=== PATIENT | female | born 1970 | race Caucasian/White ===

== ENCOUNTER 2024-08-14 11:17 | Emergency (ER) | payer OTHER, SELFPAY ==
[2024-08-14 11:20] VITALS: BP 137/70; PULSE 86; RESP 18; TEMP 36.4; O2SAT 100
--- NOTE | 2024-08-14 11:36 | PC.NURSE ---
pt educated that a urine sample will be needed, patient unable to provide one at this time and will utilize call light when she is.
--- NOTE | 2024-08-14 11:41 | PC.NURSE ---
bloodwork sent to lab at this time
--- NOTE | 2024-08-14 11:41 | PC.NURSE ---
pt reports that she has had abdominal pain for the past week, with some diarrhea yesterday. pt denies any nausea or vomiting but states I think I may have cancer, it's been a long time since I've seen a doctor
[2024-08-14 11:44] LABS: Basophils Absolute Auto 0.1 K/mm3 (0.0-0.1); Basophils Percent Auto 0.6 % (0.2-1.2); Eosinophils Absolute Auto 0.2 K/mm3 (0-0.3); Eosinophils Percent Auto 2.1 % (0-4.4); Hematocrit 43.7 % (37.0-47.0); Hemoglobin 14.3 g/dL (12.0-15.0); Immature Granulocyte Absolute 0.03 K/mm3 (0.00-0.031); Immature Granulocyte Percent A 0.4 % (0-0.5); Mean Corpuscular HGB Conc 32.7 g/dl (32-36); Mean Corpuscular Hemoglobin 29.6 pg (26-34); Mean Corpuscular Volume 90.5 fl (80-100); Mean Platelet Volume 10.9 fl (7.4-10.4); Monocytes Absolute Auto 0.7 K/mm3 (0.1-0.6); Monocytes Percent Auto 7.9 % (2.6-8.5); Platelet Count Result 308 k/mm3 (150-375); Red Blood Count 4.83 M/mm3 (4.2-5.4); Red Cell Distribution Width 13.2 % (11.5-14.5); White Blood Count 8.3 K/mm3 (4.5-10.0)
[2024-08-14 11:53] LABS: Alanine Aminotransferase 21 U/L (6-35); Albumin Level 4.3 g/dL (3.5-5.1); Alkaline Phosphatase 97 U/L (38-126); Anion Gap 7 mmol/L (4-12); Aspartate Amino Transferase 20 U/L (14-36); Bilirubin,Total 0.6 mg/dL (0.2-1.3); Blood Urea Nitrogen 13 mg/dL (7-17); Calcium 9.1 mg/dL (8.4-10.2); Carbon Dioxide 28 mmol/L (22-30); Chloride 108 mmol/L (98-107); Estimated CRCL calculation 76 ml/min; Estimated Glomerular Filt Rate > 60; Glucose 116 mg/dL (65-110); Lipase 104 U/L (23-300); Sodium 143 mmol/L (137-145)
--- NOTE | 2024-08-14 11:56 | PC.NURSE ---
patient to bathroom with a urine sample cup at this time
--- NOTE | 2024-08-14 12:03 | PC.NURSE ---
patient not able to give enough urine for urine sample at this time. will try again
--- OUTSIDE RECORDS SUMMARY | 2024-08-14 12:03 | XMS_ITS | Referral Summary ---
Author Organization [facility] Address [address] [place] [address] Care Team Providers Care Saddle Mechanic Name Role Phone Diego Lopez MD Primary Care Provider [phone] Allergies No known active allergies Medications butalbital-acet aminophen-caffe ine (ESGIC) 50-325-40 mg per tablet Take 1 tablet by mouth every 6 (six) hours as needed for headaches for up to 5 days 20 tablet 3 Active cephalexin (KEFLEX) 500 mg capsule Take 1 capsule (500 mg total) by mouth 4 (four) times a day Active baclofen (LIORESAL) 10 mg tablet Take 1 tablet (10 mg total) by mouth 3 (three) times a day as needed for muscle spasms 90 tablet 11 3 Active amitriptyline (ELAVIL) 25 mg tablet Take 1 tablet (25 mg total) by mouth nightly 30 tablet 11 3 Active Active Problems No known active problems Social History Tobacco Use Types Packs/Day Years Used Date Smoking Tobacco: Never Assessed Passive Smoke Exposure: Never Tobacco Cessation:Counseling Given: No Personal Safety Answer Date Recorded Have you ever been in or are you currently in a harmful physical or emotional relationship or is someone making you feel afraid or unsafe? 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 Gender Identity Not on file Sexual Orientation Not on file Last Filed Vital Signs Vital Sign Reading Time Taken Comments Blood Pressure 120/70 12/13/2022 1:12 PM CDT Pulse 61 12/04/2022 8:57 PM CDT Temperature 36.8 C (98.2 F) 12/04/2022 2:37 PM CDT Respiratory Rate 16 12/04/2022 8:57 PM CDT Oxygen Saturation 100% 12/04/2022 8:57 PM CDT Inhaled Oxygen Concentration - - Weight 72.6 kg (160 lb) 12/13/2022 1:12 PM CDT Height 152.4 cm (5') 12/13/2022 1:12 PM CDT Body Mass Index 31.25 12/13/2022 1:12 PM CDT Plan of Treatment Not on file Insurance Care Teams Saddle Mechanic Relationship Specialty Start Date End Date Diego Lopez MD [address] [place] [address] PCP - General Internal Medicine 12/08/22
--- OUTSIDE RECORDS SUMMARY | 2024-08-14 12:03 | XMS_ITS | Clinical Summary ---
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 Gender Identity Not on file Sexual Orientation Not on file Obstetrics History Last Filed Vital Signs Vital Sign Reading [...] 12/13/2022 1:12 PM CDT Plan of Treatment Health Maintenance Due Date Last Done Comments Breast Cancer Screening-Mammogram 1972 Cervical Cancer Screening 1972 Colon Cancer Screening-Colonoscopy 1972 Depression Screening 1972 Hepatitis C Screening 1972 DTaP/Tdap/Td Vaccine (1 - Tdap) 1983 Hepatitis B Screening 1990 Regular Well Visit/Exam 18-64 1990 Zoster Vaccine (1 of 2) 2022 Influenza Vaccine (Season Ended) 2024 02/13/20 08 Pneumococcal vaccine <65 Aged Out No longer eligible based on patient's age to complete this topic [place] [address] [place] [address] Care Teams Mix Chemist Relationship Specialty Start Date End Date Diego Lopez MD [address] [place] [address] PCP - General Internal Medicine 12/08/22
--- OUTSIDE RECORDS SUMMARY | 2024-08-14 12:03 | XMS_ITS | Clinical Summary ---
Author Organization [facility] Address [address] [place] [id number] Care Team Providers Care Gear Milling Machine Set Up Operator Name Role Phone None, Provider MD Primary Care Provider Unavaila ble Allergies No known active allergies Social History Tobacco Use Types Packs/Day Years Used Date Smoking Tobacco: Never Smokeless Tobacco: Never Tobacco Cessation:Counseling Given: Not Answered Alcohol Use Standard Drinks/Week Comments Never 0 (1 standard drink = 0.6 oz pur e alcohol) Comments No Sex and Gender Information Value Date Recorded Sex Assigned at Not on file Legal Sex Female 8:19 PM CDT Gender Identity Not on file Sexual Orientation Not on file Last Filed Vital Signs Vital Sign Reading Time Taken Comments Blood Pressure 120/79 02/08/2023 2:21 PM CDT Pulse 93 02/08/2023 2:21 PM CDT Temperature 36.4 C (97.6 F) 02/08/2023 2:21 PM CDT Respiratory Rate 18 02/08/2023 2:21 PM CDT Oxygen Saturation 98% 02/08/2023 2:21 PM CDT Inhaled Oxygen Concentration - - Weight 68 kg (150 lb) 02/08/2023 2:21 PM CDT Height 160 cm (5' 3 ) 02/08/2023 2:21 PM CDT Body Mass Index 26.57 02/08/2023 2:21 PM CDT Plan of Treatment Health Maintenance Due Date Last Done Comments Cervical Cancer Screening Pa p Smear (Age 30 to 64) Every 3 Years 1972 Colorectal Cancer Screening Colonoscopy (10 Years) 1972 Annual Physical 1975 Hepatitis C 1990 DTaP, Tdap and Td Vaccines ( 1 - Tdap) 1991 Hepatitis B Vaccines (1 of 3 - 19+ 3-dose series) 1991 Cervical Cancer Screening Pa p with HPV Testing (Age 30 to 64) Every 5 Years 2002 Cervical Cancer Screening with HPV 2002 Mammogram Screening 2012 Pneumococcal Vaccine: 50+ Ye ars (1 of 1 - PCV) 2022 Zoster Vaccines (1 of 2) 2022 COVID-19 Vaccine (1 - 2023-2 5 season) 2023 Meningococcal B Vaccine Aged Out No l onger eligible based on patient's age to complete this topic Meningococcal Vaccine Aged Out No jennifer tea eligible based on patient's age to complete this topic RSV Immunizations Under 20 Months Aged Out No longer eligible based on patient's age to complete this topic Insurance [facility] [id number] Care Teams Gear Milling Machine Set Up Operator Relationship Specialty Start Date End Date None, Provider, MD PCP - General UNKNOWN PHYSICIAN SPECIALTY 02/08/23
--- OUTSIDE RECORDS SUMMARY | 2024-08-14 12:34 | XMS_ITS | Clinical Summary ---
Author Organization [facility] Address [address] [place] [id number] Care Team Providers Care Associate Professor Of Kinesiology Name Role Phone None, Provider MD Primary [...] patient's age to complete this topic Insurance [facility] [id number] Care Teams Associate Professor Of Kinesiology Relationship Specialty Start Date End Date None, Provider, MD PCP - General UNKNOWN PHYSICIAN SPECIALTY 02/08/23
[2024-08-14] MEDS: KETOROLAC 30 MG/ML VIAL (*BKC) IV PUSH (12:41)
--- NOTE | 2024-08-14 12:45 | PC.NURSE ---
patient provided a new urine cup at this time, was educated that we need a urine sample. patient declined a straight cath at this time. will attempt to provide urine sample
--- NOTE | 2024-08-14 13:07 | PC.NURSE ---
patient given urine cup and advised we need a urine sample. patient attempting to go at this time. RAGHAV Shipley aware.
[2024-08-14 13:17] LABS: BEDSIDEPREGUCG Negative (Negative)
[2024-08-14 13:25] LABS: Add Urine Microscopic? YES; Appearance Urine Clear (Clear); Bacteria Urine 4+ /hpf; Bilirubin Urine Negative (Negative); Blood Urine Negative (Negative); Color Urine Yellow (Yellow); Glucose Urine UA Negative (Negative); Ketones Urine Negative (Negative); Leukocyte Esterase Ur Negative LEU/UL (Negative); Nitrate Urine Positive (Negative); Non Pathogenic Casts 0-2; Protein Urine Negative (Negative); RBC Urine 0-2 /hpf (0-2); Specific Grav Ur 1.022 (1.001-1.035); Squamous Epithelial Cell Urine Few /hpf (Few); Urobilinogen Urine 0.2 mg/dL (<2.0); pH Urine 5.5 (5.0-9.0)
--- NOTE | 2024-08-14 13:28 | ED.ABDPAIN ---
HPI - Abdominal Pain General Chief Complaint: Abdominal Pain Stated Complaint: Abd pain x 1 week Time Seen by Provider: 08/14/24 12:00 History of Present Illness HPI narrative: Patient is a 54-year-old female who presents ER with suprapubic pain. Ongoing for 1 week. Associated with diarrhea yesterday. Denies constipation. It is an uncomfortable feeling but she cannot describe any other quality nor has any radiation. Chairez she cannot identify any alleviating factors or aggravating factors. No urinary frequency urgency or dysuria. Patient also would like to have a breast exam. She has no breast lumps or abnormal drainage from her nipple or lumps that she has noticed. She is unsure when her last mammogram was performed. Related Data Allergies Allergy/AdvReac Type Severity Reaction Status Date / Time No Known Allergies Allergy Mild Unverified 08/14/24 11:18 Review of Systems Review of Systems: All systems reviewed & are unremarkable except as noted in HPI and below Constitutional: Constitutional: Reports no additional constitutional complaints Cardiovascular: Cardiovascular: Reports no additional cardiovascular complaints Respiratory: Respiratory: Reports no additional respiratory complaints Gastrointestinal: Gastrointestinal: Reports no additional gastrointestinal complaints Genitourinary: Genitourinary: Reports no additional female genitourinary complaints Integumentary/Breasts: Skin/Breast: Reports system reviewed and no additional complaints, except as docu Exam Narrative: GENERAL: Well-appearing, well-nourished, and in no acute distress. HEAD: Normocephalic, atraumatic. ENT: Mucous membranes moist. CHEST: Clear to auscultation. No respiratory distress. Breast exam performed bilaterally with nurse present in the room. Enter treat go beneath the right breast. No large masses or other abnormalities identified. HEART: Regular rate and rhythm. Normal peripheral pulses. ABDOMEN: Soft, nontender, nondistended. EXTREMITIES: Normal range of motion. No edema. SKIN: Warm, dry, no rash. NEURO: Alert and oriented x3. PSYCH: Normal mood and affect. Course Course Emergency Course: Patient with UTI. Will treat with oral antibiotics. Statin powder for and treat go. Recommend follow-up with PCP and obtaining outpatient mammogram for further evaluation/screening for breast cancer. Vital Signs Vital signs: Vital Signs Temperature 97.6 F 08/14/24 11:20 Pulse Rate 86 08/14/24 11:20 Respiratory Rate 18 08/14/24 11:20 Blood Pressure 137/70 08/14/24 11:20 Pulse Oximetry 100 08/14/24 11:20 Oxygen Delivery Room Air 08/14/24 11:20 Temperature 97.6 F 08/14/24 11:20 Pulse Rate 86 08/14/24 11:20 Respiratory Rate 18 08/14/24 11:20 Blood Pressure 137/70 08/14/24 11:20 Pulse Oximetry 100 08/14/24 11:20 Oxygen Delivery Room Air 08/14/24 11:20 MDM - Abdominal Pain Lab Data 08/14/24 11:38 08/14/24 11:38 Labs: Lab Results 08/14/24 08/14/24 08/14/24 Range/Units 11:25 11:38 13:13 WBC 8.3 (4.5-10.0) K/mm3 RBC 4.83 (4.2-5.4) M/mm3 Hgb 14.3 (12.0-15.0) g/dL Hct 43.7 (37.0-47.0) % MCV 90.5 (80-100) fl MCH 29.6 (26-34) pg MCHC 32.7 (32-36) g/dl RDW 13.2 (11.5-14.5) % Plt Count 308 (150-375) k/mm3 MPV 10.9 H (7.4-10.4) fl Immature Gran % (Auto) 0.4 (0-0.5) % Neut % (Auto) 60.0 (45.5-73.1) % Lymph % (Auto) 29.0 (18.3-44.2) % [place] % (Auto) 7.9 (2.6-8.5) % Eos % (Auto) 2.1 (0-4.4) % Baso % (Auto) 0.6 (0.2-1.2) % Lymph # (Auto) 2.40 (0.9-3.2) K/mm3 [place] # (Auto) 0.7 H (0.1-0.6) K/mm3 Eos # (Auto) 0.2 (0-0.3) K/mm3 Baso # (Auto) 0.1 (0.0-0.1) K/mm3 Abs Immat Gran (auto) 0.03 (0.00-0.031) K/mm3 Absolute Neuts (auto) 5.0 (1.3-6.7) K/mm3 Absolute Nucleated RBC 0.000 (0.0-0.012) K/mm3 Nucleated RBC % 0.0 (0.0-0.2) % Sodium 143 (137-145) mmol/L Potassium 4.0 (3.4-5.0) mmol/L Chloride 108 H (98-107) mmol/L Carbon Dioxide 28 (22-30) mmol/L Anion Gap 7 (4-12) mmol/L BUN 13 (7-17) mg/dL Creatinine 0.71 (0.7-1.0) mg/dL Estim Creat Clear Calc 76 ml/min Estimated GFR > 60 (59 - ) Glucose 116 H (65-110) mg/dL Calcium 9.1 (8.4-10.2) mg/dL Total Bilirubin 0.6 (0.2-1.3) mg/dL AST 20 (14-36) U/L ALT 21 (6-35) U/L Alkaline Phosphatase 97 (38-126) U/L Total Protein 8.0 (6.3-8.2) g/dL Albumin 4.3 (3.5-5.1) g/dL Lipase 104 (23-300) U/L Urine Color Yellow (Yellow) Urine Appearance Clear (Clear) Urine pH 5.5 (5.0-9.0) Ur Specific [place] 1.022 (1.001-1.035) Urine Protein Negative (Negative) mg/dL Urine Glucose (UA) Negative (Negative) mg/dL Urine Ketones Negative (Negative) mg/dL Ur Blood (Man) Negative (Negative) Urine Nitrate Positive H (Negative) Urine Bilirubin Negative (Negative) Urine Urobilinogen 0.2 (<2.0) mg/dL Leukocyte Esterase Rfl Negative (Negative) JULIANA/UL Urine RBC 0-2 (0-2) /hpf Urine WBC 6-10 H (0-3) /hpf Ur Squamous Epith Cells Few (Few) /hpf Urine Bacteria 4+ H /hpf Urine Casts 0-2 POC Urine HCG, Qual Negative (Negative) Discharge Plan Discharge Clinical Impression: UTI (urinary tract infection), Candidal intertrigo Patient Disposition: Home Condition: Stable Instructions: Urinary Tract Infection in Women (ED), Skin Yeast Infection (ED) Additional Instructions: You should return to the emergency department if you develop severe nausea and vomiting and are unable to keep liquids down, if you develop severe back/flank or stomach pain, or if your symptoms are not clearly improving at home. Patient Language: [place] Prescriptions: New cephalexin 500 mg capsule 500 mg PO Q12H Qty: 10 0RF nystatin 100,000 unit/gram powder 1 applic topical TID Qty: 15 0RF Rx Instructions: Underside of right breast Follow-up/Referrals: Asim Maldonado MD [Primary Care Provider] - 1 Week
== END 2024-08-14 13:43 | disposition home or self-care (01) ==
PROVIDERS: Student in an Organized Health Care Education/Training Program; Emergency Provider Emergency Medicine; PCP Emergency Medicine
DX: N39.0 Urinary tract infection, site not specified (principal); B37.2 Candidiasis of skin and nail
CPT/HCPCS: 36415; 80053; 81001; 81025; 83690; 85025; 87086; 87186; 96374; 99284; J1885